=== PATIENT | female | born 1950 | race African-American/Black ===

== ENCOUNTER → 2018-08-22 | Emergency (ER) | LOC: EDBD → ERS 09:49 | DX: Z53.21 Procedure and treatment not carried out due to patient leaving prior to being seen by health care provider (principal) ==

== ENCOUNTER 2018-10-10 14:16 | Emergency (ER) | payer MEDICARE, MEDICAID ==
--- NOTE | 2018-10-10 15:37 | RAD ---
THREE VIEWS OF THE RIGHT SHOULDER: COMPARISON: None. HISTORY: Right shoulder pain that began this morning. FINDINGS: Three views right shoulder show no evidence of acute fracture or dislocation. There is ossification along the lateral aspect of the acromion process. No glenohumeral degenerative changes are seen. A well-circumscribed sclerotic lesion is seen projecting over the right humerus which is likely a benig n osseous lesion. IMPRESSION: No evidence of acute osseous abnormality. POS: [facility]
== END 2018-10-10 15:53 | disposition home or self-care (01) ==
LOC: ERS 14:16
DX: M25.511 Pain in right shoulder (principal); I25.2 Old myocardial infarction; E11.9 Type 2 diabetes mellitus without complications; I10 Essential (primary) hypertension; M19.90 Unspecified osteoarthritis, unspecified site; F41.9 Anxiety disorder, unspecified; F32.9 Major depressive disorder, single episode, unspecified; Z79.899 Other long term (current) drug therapy
CPT/HCPCS: 93005

== ENCOUNTER 2018-10-17 10:22 | Emergency (ER) | payer MEDICARE, OTHER ==
[2018-10-17] MEDS ORDERED: predniSONE 20 MG TAB ONE (10:56)
== END 2018-10-17 11:08 | disposition home or self-care (01) ==
LOC: ERS 10:22
DX: M25.511 Pain in right shoulder (principal); I25.2 Old myocardial infarction; I10 Essential (primary) hypertension; E11.9 Type 2 diabetes mellitus without complications; M19.90 Unspecified osteoarthritis, unspecified site; F41.9 Anxiety disorder, unspecified; F32.9 Major depressive disorder, single episode, unspecified; Z79.899 Other long term (current) drug therapy; Z79.891 Long term (current) use of opiate analgesic
CPT/HCPCS: 99283

== ENCOUNTER 2018-10-22 15:57 | Emergency (ER) | payer MEDICARE, OTHER ==
--- NOTE | 2018-10-22 17:39 | RAD ---
RIGHT TIBIA AND FIBULA TWO VIEW 10/22/18 HISTORY: Fall. COMPARISON: None. FINDINGS: No fracture. No malalignment. Moderate vascular calcifications. Moderate degenerative changes of the ankle. IMPRESSION: No acute fracture or malalignment. POS: [facility]
--- NOTE | 2018-10-22 18:15 | RAD ---
RIGHT KNEE FOUR VIEW 10/22/18 HISTORY: Fall yesterday. Pain. COMPARISON: 04/29/15. FINDINGS: Uncomplicated right knee arthroplasty. No perihardware lucency. There is mild bone demineralization. There is no fracture. No malalignment. No significant joint effusion. Vascular calcifications are not ed. IMPRESSION: No posttraumatic change. POS: [facility]
== END 2018-10-22 17:48 | disposition home or self-care (01) ==
LOC: ERS 15:57
DX: M25.561 Pain in right knee (principal); I25.2 Old myocardial infarction; E11.9 Type 2 diabetes mellitus without complications; I10 Essential (primary) hypertension; F41.9 Anxiety disorder, unspecified; F32.9 Major depressive disorder, single episode, unspecified; W17.89XA Other fall from one level to another, initial encounter

== ENCOUNTER 2018-10-25 09:16 | Emergency (ER) | payer MEDICARE, MEDICAID | END 2018-10-25 10:40 | disposition home or self-care (01) | LOC: EDBD 09:16 → ERS 09:16 | DX: M79.604 Pain in right leg (principal); G89.29 Other chronic pain; F41.9 Anxiety disorder, unspecified; F32.9 Major depressive disorder, single episode, unspecified; I25.2 Old myocardial infarction; E11.9 Type 2 diabetes mellitus without complications; M19.90 Unspecified osteoarthritis, unspecified site | CPT/HCPCS: 99283 ==